=== PATIENT | male | born 1930 | race Caucasian/White ===

== ENCOUNTER 2017-06-09 11:06 | Outpatient (CLI) | payer MEDICARE, MEDICAID ==
[~2017-06-09 11:06] MED LIST: ALLOPURINOL100 M1 ORAL; AMLODIPINE BESY10 MG ORAL; ASPIR 8181 MG ORAL; ASPIRIN-LOW81 MG ORAL; ENALAPRIL MALEA10 MG ORAL; FLOMAX0.4 MG ORAL; FOLIC ACID1 MG ORAL; GLUCOSAMINE1000 M1 ORAL; METFORMIN HCL500 M1 ORAL; OMEGA 3 1,0001 EACH PO; PEPCID20 MG ORAL; PEPCID40 MG ORAL; PRAVACHOL20 MG ORAL; VITAMIN D1000 UNI1 ORAL
[2017-06-09 13:48] VITALS: BP 152/52
[2017-06-09] MEDS ORDERED: METOPROLOL SUCC50 MG ORAL (13:54)
[2017-06-09] MEDS ORDERED: PEPCID40 MG PO (13:54)
[2017-06-09] MEDS ORDERED: MYRBETRIQ25 MG PO (13:54)
--- NOTE | 2017-06-10 09:45 | GI Progress Note ---
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 Hernandez. Assessment/Plan abnormal CT >> cystic lesion in pancreatic tail [facility] imaging for video swallow today hx of 6 colonic polyps Plan for EUS 06/22/17. - NPO @ CT day prior procedure repeat colonoscopy 10/2018 Subjective Gastrointestinal/Abdominal: Reports: abdominal pain Subjective back pain Objective Last 24 Hour Vital Signs Date Time Temp Pulse Resp B/P (MAP) Pulse Ox O2 Delivery O2 Flow Rate FiO2 06/09/17 13:48 97.6 57 16 152/52 97 97.6 General Appearance: WD/WN, no apparent distress, alert Cardiovascular: normal rate Respiratory/Chest: normal breath sounds, no respiratory distress Abdominal Exam: normal bowel sounds, non tender, soft Extremities: normal range of motion, non-tender Idalia Tucker NGarfield Jun 10, 2017 09:45
== END 2017-06-09 11:40 | disposition home or self-care (01) ==
LOC: PAN 11:06
DX: Z13.1 Encounter for screening for diabetes mellitus (principal); K86.2 Cyst of pancreas; K63.5 Polyp of colon; K21.9 Gastro-esophageal reflux disease without esophagitis; D3A.010 Benign carcinoid tumor of the duodenum
CPT/HCPCS: 99202

== ENCOUNTER 2017-06-22 08:33 | Day surgery (SDC) | payer MEDICARE, MEDICAID ==
[2017-06-22] VITALS (8 sets, daily range): BP systolic 144–160; BP diastolic 63–73
[~2017-06-22] VITALS: Ht 162.6 cm; Wt 65.3 kg
[~2017-06-22 08:33] MED LIST changes: +METOPROLOL SUCC50 MG ORAL; +MYRBETRIQ25 MG PO; +PEPCID40 MG PO
[2017-06-22] MEDS ORDERED: CALCIUM600 M1 PO (10:09)
[2017-06-22] MEDS ORDERED: red rice PO (10:09)
[2017-06-22] MEDS ORDERED: TRADJENTA5 MG PO (10:09)
--- NOTE | 2017-06-22 10:09 | Pre-Procedure Note/Attestation ---
Pre-Procedure Note/Attestation Complete Prior to Procedure Planned Procedure: not applicable Procedure Narrative: egd/EUS Indications for Procedure Pre-Operative Diagnosis: pancreatic cyst Attestation I attest that I discussed the nature of the procedure; its benefits; risks and complications; and alternatives (and the risks and benefits of such alternatives ), prior to the procedure, with the patient (or the patient's legal b2b outside sales representative). I attest that, if there was a reasonable possibility of needing a blood transfusion, the patient (or the patient's legal b2b outside sales representative) was given the [facility] of Health Services standardized written summary, pursuant to the [place] Blood Safety Act ([place] Health and Safety Code # 1645, as amended). I attest that I re-evaluated the patient just prior to the surgery and that there has been no change in the patient's H&P, except as documented below: SUZAN MARI June 22, 2017 10:08
--- NOTE | 2017-06-22 10:09 | Short Stay Surgery H&P ---
History of Present Illness History of Present Illness Chief Complaint see recent office note HPI Otto Peters is a 86 year old male who was admitted on for Abdominal Pain, Pancreatic Cyst Patient History Allergies: Coded Allergies: No Known Allergies (Verified , 06/22/17) Medication History Scheduled Allopurinol* (Allopurinol*), 100 MG ORAL DAILY, (Reported) Amlodipine Besylate* (Amlodipine Besylate*), 5 MG ORAL QOD, (Reported) Aspirin* (Aspir 81*), 81 MG ORAL DAILY, (Reported) Cholecalciferol (Vitamin D3)* (Vitamin D*), 2,000 UNITS ORAL DAILY, (Reported) Enalapril Maleate* (Enalapril Maleate*), 10 MG ORAL DAILY, (Reported) Famotidine (Pepcid), 40 MG ORAL PRN, (Reported) Famotidine (Pepcid), 40 MG PO DAILY, (Reported) Glucosamine Sulfate 2KCL (Glucosamine), 1,000 MG ORAL BID, (Reported) Metformin Hcl* (Metformin Hcl*), 850 MG ORAL DAILY, (Reported) Metoprolol Succinate* (Metoprolol Succinate*), 50 MG ORAL DAILY, (Reported) Pravastatin Sod* (Pravachol*), 20 MG ORAL DAILY, (Reported) Miscellaneous Medications Mirabegron (Myrbetriq), 25 MG PO, (Reported) [place]-3 Fatty Acids/Fish Oil ([place] 3 1,000 Mg Softgel), 1 EACH PO, (Reported) Physical Exam Vital Signs Last Vital Signs Date Time Temp Pulse Resp B/P (MAP) Pulse Ox O2 Delivery O2 Flow Rate FiO2 06/22/17 09:24 97.8 52 18 144/65 98 Room Air 97.8 Plan Attestation Are the patient's medical conditions optimized for surgery? SUZAN MARI June 22, 2017 10:09
--- NOTE | 2017-06-22 10:51 | Anethesia Preoperative Eval ---
Anesthesia Pre-op PMH/ROS General Date of Evaluation: June 22, 2017 Time of Evaluation: 11:11 Anesthesiologist: Sarah ASA Score: ASA 3 Mallampati Score Class I : Soft palate, uvula, fauces, pillars visible Class II: Soft palate, uvula, fauces visible Class III: Soft palate, base of uvula visible Class IV: Only hard plate visible Mallampati Classification: Class II Surgeon: David Diagnosis: Abd Pain Surgical Procedure: EUA, EGD Anesthesia History: none Family History: no anesthesia problems Allergies: Coded Allergies: No Known Allergies (Verified , 06/22/17) Medications: see eMAR Past Medical History Cardiovascular: Reports: HTN, other - HL Gastrointestinal/Genitourinary: Reports: GERD, other - Pancreatic cyst, Diveticulitis Endocrine: Reports: DM HEENT: Reports: cataract (R) Hematology/Immune: Reports: anemia PSxH Narrative: Bilateral Hernia SX, Prostate Sx X5 Anesthesia Pre-op Phys. Exam Physician Exam Last Vital Signs Date Time Temp Pulse Resp B/P (MAP) Pulse Ox O2 Delivery O2 Flow Rate FiO2 06/22/17 09:24 97.8 52 18 144/65 98 Room Air 97.8 Constitutional: NAD Neurologic: CN 2-12 intact Cardiovascular: RRR Respiratory: CTA Gastrointestinal: S/NT/ND Airway Exam Mallampati Score: Class II MO: limited ROM: limited Teeth: missing Anesthesia Pre-op A/P Risk Assessment & Plan Assessment: ASA 3 Plan: TIVA Status Change Before Surgery: No Hair Smith MD June 22, 2017 10:51
[2017-06-22] MEDS ORDERED: Propofol 200mg/20ml IV ONE (11:00)
[2017-06-22] MEDS ORDERED: LR 1000ml ONE (11:00)
[2017-06-22] MEDS ORDERED: Lidocaine 1% MPF 10mg/ml 5ml ONE (11:00)
[2017-06-22] MEDS ORDERED: Midazolam 2mg/2ml Inj ONE (11:00)
[2017-06-22] MEDS ORDERED: Heplock Flush 100 units/ml 3 ml syr ONE (11:18)
--- NOTE | 2017-06-22 11:30 | Immediate Post-Op Evaluation ---
Immediate Post-Op Evalulation Immediate Post-Op Evalulation Procedure: EGD, EUHitesh Date of Evaluation: June 22, 2017 Time of Evaluation: 12:29 IV Fluids: 500 LR Blood Products: 0 Estimated Blood Loss: 1 Urinary Output: 0 Blood Pressure Systolic: 158 Blood Pressure Diastolic: 69 Pulse Rate: 61 Respiratory Rate: 16 O2 Sat by Pulse Oximetry: 100 Temperature (Fahrenheit): 97.6 Pain Score (1-10): 1 Nausea: No Vomiting: No Complications 0 Patient Status: awake, reacts, patent, none Hydration Status: adequate Hair Smith MD June 22, 2017 11:30
--- NOTE | 2017-06-22 11:31 | 48 Hour Post Anesthesia Eval ---
Post Anesthesia Evaluation Procedure: EGD, EUA Date of Evaluation: June 22, 2017 Time of Evaluation: 14:32 Blood Pressure Systolic: 153 0: 72 Pulse Rate: 57 Respiratory Rate: 18 Temperature (Fahrenheit): 98.2 O2 Sat by Pulse Oximetry: 99 Airway: patent Nausea: No Vomiting: No Pain Intensity: 1 Hydration Status: adequate Cardiopulmonary Status: Stable Mental Status/LOC: patient returned to baseline Follow-up Care/Observations: 0 Post-Anesthesia Complications: 0 Follow-up care needed: ready to discharge Hair Smith MD June 22, 2017 11:31
--- NOTE | 2017-06-22 12:12 | Endoscopy Procedure Note ---
Endoscopy Procedure Note General Indication for Procedure: panc cyst Procedures Performed: EGD - EUS Operative Findings/Diagnosis: same Specimen: yes Pt Tolerated Procedure Well: Yes Estimated Blood Loss: none Anesthesia Anesthesiologist: floyd Anesthesia: MAC Inserted Devices Implant(s) used?: No GI Core Measures 50 yrs or older w/o bx or poly: Not Applicable 10yrs. F/U not recommended: Not Applicable SUZAN AMRI June 22, 2017 12:12
--- NOTE | 2017-06-22 13:30 | Procedure Note ---
DATE OF PROCEDURE: 06/22/2017 SURGEON: Chivo Hernandez M.D. PROCEDURE: Upper endoscopy with biopsy and endoscopic ultrasound. ANESTHESIA: Per Dr. Smith. INSTRUMENT: Olympus adult flexible upper endoscope and EUS scope. INDICATION: Pancreatic cyst. REASON FOR PROCEDURE: The procedure, risks, benefits, and possible consequences, including hemorrhage, aspiration, perforation and infection, and alternative treatments, were explained to the patient/legal guardian by Dr. Chivo Hernandez and the patient/legal guardian understood and accepted these risks. DESCRIPTION OF PROCEDURE: After informed consent was obtained and the patient was adequately sedated, first Olympus upper endoscope was advanced from mouth into the second portion of duodenum and retroflexion was performed in the stomach. The patient had evidence of multiple erosions in the peripyloric region, some of them linear. No obvious ulceration or bleeding at this time. In the duodenal bulb, there was some mild duodenitis. At this time, the scope was pushed back into the stomach and biopsy from antrum was obtained to rule out H. pylori infection. At this time, the upper endoscope was retrieved and then the EUS scope was introduced. We used the radial scope. Scanning at GE junction, we looked at the celiac axis, there was no obvious celiac axis lymphadenopathy. Then pancreatic parenchyma was carefully examined through the gastroduodenal mucosa. There was no obvious mass seen in this procedure. No common bile duct, no pancreatic duct dilatation was seen. There was a complex looking cyst in the tail of the pancreas. This cyst had three components, the largest component was 2 cm, the other two seems to be stacking up on the first one. I am not sure if they were connected or not, it was hard to state. They were much smaller, altogether as a clump, at one unit they were about 2.5 cm as I mentioned the largest one was the one on the bottom, which was 2 cm dilated cyst, looks like a simple cyst. If they are connected, then they will make a complex septated cyst. There was no wall thickening or any nodule seen in the cyst. The cyst since did not seem to be communicating with pancreatic duct, so side branch IPMN was to be less likely. At this time, the EUS radial scope was removed and linear scope was introduced. We tried to find a good angle for FNA, but we could not even seen the linear scope given the tail of the pancreas location, so we could not do FNA at this time. The patient tolerated the procedure very well without any complication. SUMMARY OF FINDINGS: 1. Antral gastritis with erosions. 2. Duodenitis. 3. Small hiatal hernia. 4. Gastritis, status post biopsy. 5. A cystic lesion in the tail of the pancreas. It seems that there is one large cyst about 2 cm without any wall thickening and there seems to be two smaller cysts on top of the first one. I cannot be sure if they are connected or not. If they are connected, this would be a complex septated cyst, otherwise would be like three different small simple looking cysts. I could not see this cyst with a linear scope for FNA. RECOMMENDATIONS: 1. Follow up biopsy results. 2. Recommend repeat MRI with MRCP in six months from the last one. If the cyst is growing, then we will recommend repeat EUS with possible FNA next time. If the cyst is not growing, I will recommend monitoring at, at least six months' interval. Chivo Hernandez M.D. DR: MONIE JOB#: [id number] CC:
[2017-06-22 13:53] LABS: BASOPHILS % (AUTO) 0.6 % (0.0-2.0); EOSINOPHILS % (AUTO) 3.1 % (0.0-3.0); HEMATOCRIT 42.3 % (42.0-52.0); HEMOGLOBIN 14.3 G/DL (14.2-18.0); LYMPHOCYTES % (AUTO) 27.6 % (20.0-45.0); MEAN CORPUSCULAR VOLUME 90 FL (80-99); MONOCYTES % (AUTO) 6.9 % (1.0-10.0); NEUTROPHILS % (AUTO) 61.8 % (45.0-75.0); PLATELET COUNT 153 K/UL (150-450); RED BLOOD COUNT 4.71 M/UL (4.70-6.10); RED CELL DISTRIBUTION WIDTH 11.8 % (11.6-14.8); WHITE BLOOD COUNT 6.1 K/UL (4.8-10.8)
[2017-06-22 13:54] LABS: ALANINE AMINOTRANSFERASE 27 U/L (12-78); ALBUMIN 3.6 G/DL (3.4-5.0); ALBUMIN/GLOBULIN RATIO 1.2 (1.0-2.7); ALKALINE PHOSPHATASE 42 U/L (46-116); ANION GAP 5 mmol/L (5-15); ASPARTATE AMINO TRANSFERASE 26 U/L (15-37); BILIRUBIN,TOTAL 0.5 MG/DL (0.2-1.0); BLOOD UREA NITROGEN 21 mg/dL (7-18); CALCIUM 9.1 MG/DL (8.5-10.1); CARBON DIOXIDE 30 MMOL/L (21-32); CHLORIDE 105 MMOL/L (98-107); CREATININE 1.2 MG/DL (0.55-1.30); POTASSIUM 4.6 MMOL/L (3.5-5.1); SODIUM 140 MMOL/L (136-145)
[2017-06-23 11:41] LABS: AMYLASE 55 U/L (25-115)
--- NOTE | 2017-06-23 16:47 | Cardiology Report ---
APPROVED REPORT EKG Measurement Heart [id number] IA 230P-6 [id number] Sinus bradycardia with 1st degree AV block Right bundle branch block T wave abnormality, consider inferior ischemia Abnormal ECG
== END 2017-06-22 13:55 | disposition home or self-care (01) ==
LOC: GAS 08:33
DX: K86.2 Cyst of pancreas (principal); K29.70 Gastritis, unspecified, without bleeding; K44.9 Diaphragmatic hernia without obstruction or gangrene; K29.80 Duodenitis without bleeding; Z79.82 Long term (current) use of aspirin; Z79.84 Long term (current) use of oral hypoglycemic drugs; R00.1 Bradycardia, unspecified; I44.0 Atrioventricular block, first degree; I45.10 Unspecified right bundle-branch block; I10 Essential (primary) hypertension; K21.9 Gastro-esophageal reflux disease without esophagitis; E11.9 Type 2 diabetes mellitus without complications
CPT/HCPCS: 36415; 43239; 80053; 82378; 82962; 85025; 85610; 85730; 93005; J2250; J2704; J7120; 82150; 83690; 94003; 94150

== ENCOUNTER 2017-07-07 11:24 | Outpatient (CLI) | payer MEDICARE, MEDICAID ==
[~2017-07-07 11:24] MED LIST changes: +CALCIUM600 M1 PO; +TRADJENTA5 MG PO; +red rice PO
[2017-07-07 11:41] VITALS: BP 143/70
--- NOTE | 2017-07-07 17:38 | GI Progress Note ---
Assessment/Plan Problems: (1) GERD (gastroesophageal reflux disease) ICD Codes: K21.9 - Gastro-esophageal reflux disease without esophagitis SNOMED: 443270518 (2) Pancreas cyst ICD Codes: K86.2 - Pancreas cyst SNOMED: 91523726 (3) DM (diabetes mellitus screen) ICD Codes: Z13.1 - DM (diabetes mellitus screen) SNOMED: 493290886 (4) Colon polyps ICD Codes: K63.5 - Colon polyps SNOMED: 05904399 (5) duodenal carcinoid Status: stable Status Narrative Seen with Dr. Hernandez. Assessment/Plan EUS SUMMARY OF FINDINGS reviewed with patient: 1. Antral gastritis with erosions. 2. Duodenitis. 3. Small hiatal hernia. 4. Gastritis, status post biopsy. 5. A cystic lesion in the tail of the pancreas. It seems that there is one large cyst about 2 cm without any wall thickening and there seems to be two smaller cysts on top of the first one. I cannot be sure if they are connected or not. If they are connected, this would be a complex septated cyst, otherwise would be like three different small simple looking cysts. I could not see this cyst with a linear scope for FNA. RECOMMENDATIONS: 1. Follow up biopsy results. >> negative 2. Plan for MRCP in 11/2017. - If the cyst is growing, then we will recommend repeat EUS with possible FNA next time. - If the cyst is not growing, I will recommend monitoring at, at least six months' interval. Subjective Gastrointestinal/Abdominal: Reports: no symptoms Objective Last 24 Hour Vital Signs Date Time Temp Pulse Resp B/P (MAP) Pulse Ox O2 Delivery O2 Flow Rate FiO2 07/07/17 11:41 97.8 61 143/70 94 97.8 General Appearance: WD/WN, no apparent distress, alert Cardiovascular: normal rate Respiratory/Chest: normal breath sounds, no respiratory distress Abdominal Exam: normal bowel sounds, non tender, soft Extremities: normal range of motion, non-tender Veronika Tucker SAFETY SEALER July 07, 2017 17:38
== END 2017-07-07 11:56 | disposition home or self-care (01) ==
LOC: PAN 11:24
DX: Z13.1 Encounter for screening for diabetes mellitus (principal); K21.9 Gastro-esophageal reflux disease without esophagitis; K86.2 Cyst of pancreas; K63.5 Polyp of colon; D3A.010 Benign carcinoid tumor of the duodenum
CPT/HCPCS: 99212

== ENCOUNTER 2019-03-29 10:57 | Day surgery (SDC) | payer MEDICARE, MEDICAID ==
[2019-03-29] VITALS (7 sets, daily range): BP systolic 108–139; BP diastolic 52–71
[~2019-03-29] VITALS: Ht 162.6 cm; Wt 65.8 kg
--- NOTE | 2019-03-29 08:26 | Pre-Procedure Note/Attestation ---
Pre-Procedure Note/Attestation Complete Prior to Procedure Planned Procedure: bilateral Procedure Narrative: 1- Ptosis correction upper lids 2- Entropion correction, upper lids 3- Blepharoplasty, upper lids ( Bilaterally ). 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 Attestation I attest that I discussed the nature of the procedure; its benefits; risks and complications; and alternatives (and the risks and benefits of such alternatives ), prior to the procedure, with the patient (or the patient's legal containers sales representative). I attest that, if there was a reasonable possibility of needing a blood transfusion, the patient (or the patient's legal containers sales representative) was given the [facility] of Health Services standardized written summary, pursuant to the [place] Blood Safety Act ([place] Health and Safety Code # 1645, as amended). I attest that I re-evaluated the patient just prior to the surgery and that there has been no change in the patient's H&P, except as documented below: Huang Brooke MD Mar 29, 2019 08:26
[2019-03-29] MEDS ORDERED: Polysporin Opth Oint 3.5gm ONE (12:50)
[2019-03-29] MEDS ORDERED: Lidocaine 2% 20mg/ml/Epi 0.005mg/ml 20ml vial ONE (12:50)
[2019-03-29] MEDS ORDERED: BSS 15ml BTL ONE (12:51)
[2019-03-29] MEDS ORDERED: Povidone-Iodine 5% opth solution ONE (12:51)
[2019-03-29] MEDS ORDERED: Tetracaine 0.5% Opth 4ml Soln ONE (12:51)
[2019-03-29] MEDS ORDERED: LR 1000ml ONE (13:00)
[2019-03-29] MEDS ORDERED: Propofol 200mg/20ml IV ONE (13:00)
[2019-03-29] MEDS ORDERED: NS Irrig 1000ml ONE (13:00)
[2019-03-29] MEDS ORDERED: Sterile Water Irrig 1000ml IRRIG ONE (13:00)
[2019-03-29] MEDS ORDERED: fentaNYL 100 mcg/2 mL IV ONE (13:00)
[2019-03-29] MEDS ORDERED: LR 1000ml 1,000 ML IVLG SCH (13:27)
--- NOTE | 2019-03-29 13:27 | Anethesia Preoperative Eval ---
Anesthesia Pre-op PMH/ROS General Date of Evaluation: Mar 29, 2019 Time of Evaluation: 12:52 Anesthesiologist: Babak ASA Score: ASA 2 Mallampati Score Class I : Soft palate, uvula, fauces, pillars visible Class II: Soft palate, uvula, fauces visible Class III: Soft palate, base of uvula visible Class IV: Only hard plate visible Mallampati Classification: Class II Surgeon: Edwardo Diagnosis: Bilateral blepharoptosis Surgical Procedure: Bilateral blepharoplasty Anesthesia History: none Family History: no anesthesia problems Allergies: Coded Allergies: No Known Allergies (Verified , 06/22/17) Medications: see eMAR Patient NPO?: Yes Past Medical History Cardiovascular: Reports: HTN - stable; Denies: CAD, [place], valve dz, arrhythmia, other Pulmonary: Denies: asthma, COPD, IDA, other Gastrointestinal/Genitourinary: Reports: GERD; Denies: CRI, ESRD, other Neurologic/Psychiatric: Denies: dementia, CVA, depression/anxiety, TIA, other Endocrine: Denies: DM, hypothyroidism, steroids, other HEENT: Reports: cataract (L), cataract (R) - s/p Sx Hematology/Immune: Denies: anemia, DVT, bleeding disorder, other Musculoskeletal/Integumentary: Reports: OA; Denies: RA, DJD, DDD, edema, other PMH Narrative: as above PSxH Narrative: see H&P Anesthesia Pre-op Phys. Exam Physician Exam Last Vital Signs Date Time Temp Pulse Resp B/P (MAP) Pulse Ox O2 Delivery O2 Flow Rate FiO2 03/29/19 11:40 Room Air 03/29/19 11:25 97.1 82 18 139/71 98 Constitutional: NAD Neurologic: CN 2-12 intact Cardiovascular: RRR, no M/R/G Respiratory: CTA Gastrointestinal: S/NT/ND Airway Exam Mallampati Score: Class II MO: limited Neck: stiff ROM: limited Teeth: missing Dentures: no upper, no lower Anesthesia Pre-op A/P Labs see chart Studies Pre-op Studies: EKG - SR Risk Assessment & Plan Assessment: ASA 2 Plan: MAC Status Change Before Surgery: No Abel Hilliard MD Mar 29, 2019 13:27
[2019-03-29] MEDS ORDERED: fentaNYL 100 mcg/2 mL IV PRN (13:30)
--- NOTE | 2019-03-29 14:29 | Discharge Summary ---
Discharge Summary Discharge Summary Discharge Summary DATE OF ADMISSION: 03/29/2019 DATE OF DISCHARGE: 03/29/2019 REASON FOR HOSPITALIZATION: 1- Ptosis upper lids 2- Entropion upper lids 3- Dermatochlasis /blepharochlasis upper lids SURGERY PERFORMED:1- Ptosis correction upper lids 2- Entropion correction upper lids 3- blepharoplasty upper lids CONDITION IN THE HOSPITAL:The patient tolerated the surgery without complications. DISCHARGE CONDITION: The patient was stable at discharge. DISCHARGE MEDICATIONS: 1. Vigamox eye drops one drop q.i.d, 2. Prednisolone one drop q.i.d, 3. Keflex 500 mr q8h 4- T3 tab prn per pain q6h POSTOPERATIVE ORDERS: The patient has to rest at home. No bending, No lifting, No watching Television tonight. POSTOPERATIVE FOLLOW UP: The patient will be followed in my office tomorrow morning at 7 o'clock. Huang Brooke MD Mar 29, 2019 14:29
--- NOTE | 2019-03-29 14:30 | Immediate Post-Op Evaluation ---
Immediate Post-Op Evalulation Immediate Post-Op Evalulation Procedure: Bilateral blepharoplasty Date of Evaluation: Mar 29, 2019 Time of Evaluation: 14:29 IV Fluids: 400 Blood Products: none Estimated Blood Loss: min Urinary Output: none Blood Pressure Systolic: 128 Blood Pressure Diastolic: 76 Pulse Rate: 74 Respiratory Rate: 20 O2 Sat by Pulse Oximetry: 99 Temperature (Fahrenheit): 97.8 Pain Score (1-10): 1 Nausea: No Vomiting: No Complications none Patient Status: awake, patent, none Hydration Status: adequate Abel Hilliard MD Mar 29, 2019 14:30
--- NOTE | 2019-03-29 14:35 | Brief Operative Note ---
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 Procedure: 1- Ptosis correction upper lids 2- Entropion correction upper lids 3- Blepharoplasty upper lids Post-op Diagnosis: same as pre-op Surgeon: Huang Brooke MD Tank Wagon Operator: NONE Additional Surgeons: NONE Anesthesiologist: Dr. Hilliard Anesthesia: MAC Specimen: yes Complications: none Condition: stable Fluids: 400ml Estimated Blood Loss: minimal Drains: none Implant(s) used?: No Huagn Brooke MD Mar 29, 2019 14:35
[2019-03-30 07:35] VITALS: BP 124/76
--- NOTE | 2019-03-30 07:35 | 48 Hour Post Anesthesia Eval ---
Post Anesthesia Evaluation Procedure: Bilateral blepharoplasty Date of Evaluation: Mar 29, 2019 Time of Evaluation: 15:02 Blood Pressure Systolic: 124 0: 76 Pulse Rate: 68 Respiratory Rate: 18 Temperature (Fahrenheit): 97.8 O2 Sat by Pulse Oximetry: 98 Airway: patent Nausea: No Vomiting: No Pain Intensity: 1 Hydration Status: adequate Cardiopulmonary Status: stable Mental Status/LOC: patient returned to baseline Follow-up Care/Observations: n/a Post-Anesthesia Complications: none Follow-up care needed: ready to discharge Abel Hilliard MD Mar 30, 2019 07:35
--- NOTE | 2019-03-30 22:01 | Operative Note - Dictated ---
DATE OF OPERATION: 03/29/2019 FACILITY: [facility]. SURGEON: Huang Brooke M.D. RETAIL LOSS PREVENTION OFFICER: None. ANESTHESIOLOGIST: Abel Hilliard M.D. ANESTHESIA: Monitored anesthesia care (MAC) plus local anesthesia with lidocaine 2% and epinephrine 1:100,000. PREOPERATIVE DIAGNOSES: 1. Ptosis upper lids. 2. Entropion upper lids. 3. Dermatochalasis and blepharochalasis upper lids. POSTOPERATIVE DIAGNOSES: 1. Ptosis upper lids. 2. Entropion upper lids. 3. Dermatochalasis and blepharochalasis upper lids. SURGERY PERFORMED: 1. Ptosis correction upper lids. 2. Entropion correction upper lids. 3. Blepharoplasty upper lids bilaterally. INDICATION FOR SURGERY: The patient is an 88-year-old gentleman with history of arthritis, kidney disease, diabetes type 2, high blood pressure, high cholesterol, and benign prostatic hypertrophy. He is taking medications including enalapril maleate 10 mg, amlodipine 5 mg, metformin 500 mg, allopurinol 100 mg, triamcinolone acetonide 0.1%, nifedipine. He is not allergic to any medication. He is not a drinker. He is not a smoker. He is a retired, , lives with family. He has had cataract surgery in both eyes and is happy with the result. He is complaining of blurred vision and difficulty driving because of upper lid droopiness. 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 This is a progressive dermatochalasis skin disease with resulting change of corneal curvature, which induces astigmatism and covered visual axis, which is interruption for driving. The severity of the patient's dermatochalasis, ptosis, and entropion is clearly demonstrated on enclosed photos and the patient's visual mendez. The only solution for this patient is correction of all those disfigurements and anatomy changes with surgery. There is no alternative for that. INFORMED CONSENT: The nature of the surgery, risks, benefits, and potential complications were all explained in detail to the patient in his language, Farsi. He voiced understanding. The potential complications including, but not limited to bleeding, infection, corneal exposure, overcorrection, undercorrection, ecchymosis, swelling of the face, hematoma, dry eye syndrome, loss of eyelashes, loss of eyebrows, inequality of both eyes, change in vision, even loss of vision, loss of the eye, and even were all explained in detail to the patient. He voiced understanding and accepted all the complications. Then, he signed the consent form, which is in the chart. DESCRIPTION OF SURGERY AND FINDINGS: Following that, the patient was taken to the operation room in a stable condition. Lidocaine gel [place] 3.5% were applied to the conjunctivae of both eyes. Following that, the upper eyelids were marked with a marking pen 10 mm above the root of the eyelashes and 6 mm below the lower part of the eyebrow. About 25 mm of the skin was left to facilitate eye closure. IV sedation was given by the anesthesiologist, Dr. Hilliard. After adequate anesthesia and sedation had been achieved, the upper eyelids and eyebrows were all anesthetized with 2% lidocaine mixed with epinephrine 1:100,000. Following that, using a Bovie knife, the skin and subdermal tissue were dissected from the orbicularis oculi muscle and excised. Narrow cuts were made into the orbicularis oculi muscle. Hemostasis was performed. The fat compartments were released. The fat compartments were sculptured conservatively. Following that, the levator palpebrae superioris muscle was dissected to the aponeurosis of the muscle and aponeurosis of the muscle was tacked about 6 mm on each side and stitched with 6-0 Vicryl. Then, hemostasis was performed and the sutures were cleaned. Following that, a wedge groove was made 3 mm above the root of the upper eyelid lashes. Following that, the tarsal plate inside the groove was excised with with the Vannas scissors. The the lips of the groove was stitched with 6-0 Vicryl and hemostasis was performed and the sutures were cleaned. With this, I maneuvered the eyelid border rotated upwards and lashes were turned from downward to upward. At the end, the orbicularis oculi muscle was stitched with 6-0 Vicryl in separate stitches to have a hemostasis. At the end of the surgery, both eyes skin were stitched in the fashion of continuous running with 6-0 plain gut. At the end of the surgery, the wound was checked for hemorrhage, there was no hemorrhage. TobraDex eye ointment was applied to the area. Following that, the patient was transferred to the recovery room. In the recovery room, the wound was checked for bleeding, there was no bleeding. Ice packs and cold compresses were applied to the wound. Postop orders and directions were given to the patient. The patient will be discharged home upon stabilization. The patient will be followed in my office tomorrow morning. Huang Brooke M.D. DR: HAYDEN JOB#: [id number] CC:
== END 2019-03-29 15:20 | disposition home or self-care (01) ==
LOC: SUR 10:57
DX: H02.403 Unspecified ptosis of bilateral eyelids (principal); H02.034 Senile entropion of left upper eyelid; H02.031 Senile entropion of right upper eyelid; H02.34 Blepharochalasis left upper eyelid; H02.31 Blepharochalasis right upper eyelid; K21.9 Gastro-esophageal reflux disease without esophagitis; M19.90 Unspecified osteoarthritis, unspecified site; I12.9 Hypertensive chronic kidney disease with stage 1 through stage 4 chronic kidney disease, or unspecified chronic kidney disease; E11.22 Type 2 diabetes mellitus with diabetic chronic kidney disease; N18.9 Chronic kidney disease, unspecified; N40.0 Benign prostatic hyperplasia without lower urinary tract symptoms
CPT/HCPCS: 15823; 67924; 82962; J2704; J3010; J7120; 94003; 94150